=== PATIENT | female | born 1950 | race Caucasian/White ===

== ENCOUNTER 2018-05-29 08:38 | Inpatient (IN) | payer MEDICARE, BC ==
[~2018-05-29] VITALS: Ht 149.9 cm; Wt 79.4 kg
[2018-05-29 09:22] LABS: BASOPHILS ABSOLUTE AUTO 0.02 K/mm3 (0.00-0.23); BASOPHILS PERCENT AUTO 0 % (0-2); EOSINOPHILS ABSOLUTE AUTO 0.06 K/mm3 (0.00-0.68); EOSINOPHILS PERCENT AUTO 1 % (0-6); Hematocrit 42.4 % (33.0-51.0); Hemoglobin 13.8 g/dL (11.5-16.0); IMMATURE GRAN ABSOLUTE AUTO 0.02 K/mm3 (0.00-0.10); IMMATURE GRAN PERCENT AUTO 0 % (0-1); LYMPHOCYTES ABSOLUTE AUTO 3.47 K/mm3 (0.84-5.20); LYMPHOCYTES PERCENT AUTO 43 % (21-46); MONOCYTES ABSOLUTE AUTO 0.45 K/mm3 (0.16-1.47); MONOCYTES PERCENT AUTO 6 % (4-13); Mean Corpuscular HGB 30.6 pg (26.0-34.0); Mean Corpuscular HGB Conc 32.5 g/dL (31.5-36.5); Mean Corpuscular Volume 94 fL (80-100); Mean Platelet Volume 11.4 fL (9.1-12.4); NEUTROPHILS ABSOLUTE AUTO 4.11 K/mm3 (1.96-9.15); NEUTROPHILS PERCENT AUTO 51 % (41-73); Platelet Count 275 K/mm3 (150-400); RDW Coefficient Variation 13.7 % (11.7-14.2); Red Blood Cell Count 4.51 M/mm3 (3.80-5.20); White Blood Cell Count 8.13 K/mm3 (4.00-11.30)
[2018-05-29] MEDS ORDERED: Omeprazole20 M1 PO (09:36)
[2018-05-29] MEDS ORDERED: LOSA50 PO (09:36)
[2018-05-29] MEDS ORDERED: UNISOM25 MG PO (09:37)
[2018-05-29] MEDS ORDERED: ROSUVASTATIN CA20 MG PO (09:37)
[2018-05-29] MEDS ORDERED: CELE200 PO (09:37)
[2018-05-29] MEDS ORDERED: ACET325 PO (09:38)
[2018-05-29 09:39] LABS: Alanine Aminotransfer (ALT/SGP 33 U/L (12-78); Albumin, Blood 3.9 g/dL (3.4-5.0); Alk Phos 76 U/L (50-136); Anion Gap 11 mmol/L (6-16); Aspartate Aminotrans (AST/SGOT 30 U/L (12-37); Bilirubin, Total 0.4 mg/dL (0.1-1.0); Blood Urea Nitrogen 14 mg/dL (8-24); Bun/Creatinine Ratio 17.2 (12.0-20.0); CO2, Blood 27 mmol/L (21-32); Calcium, Blood 9.4 mg/dL (8.5-10.1); Chloride, Blood 107 mmol/L (98-108); Creatinine, Blood 0.81 mg/dL (0.40-1.00); Glomerular Filtration Rate >60 (60-); Glucose, Blood 139 mg/dL (70-99); Sodium, Blood 145 mmol/L (136-145); Total Protein, Blood 7.9 g/dL (6.4-8.2); Troponin I 0.051 ng/mL (0.000-0.040)
[2018-05-30 04:11] LABS: BASOPHILS ABSOLUTE AUTO 0.02 K/mm3 (0.00-0.23); BASOPHILS PERCENT AUTO 0 % (0-2); EOSINOPHILS ABSOLUTE AUTO 0.06 K/mm3 (0.00-0.68); EOSINOPHILS PERCENT AUTO 1 % (0-6); Hematocrit 33.2 % (33.0-51.0); Hemoglobin 10.7 g/dL (11.5-16.0); IMMATURE GRAN ABSOLUTE AUTO 0.02 K/mm3 (0.00-0.10); IMMATURE GRAN PERCENT AUTO 0 % (0-1); LYMPHOCYTES ABSOLUTE AUTO 2.31 K/mm3 (0.84-5.20); LYMPHOCYTES PERCENT AUTO 38 % (21-46); MONOCYTES ABSOLUTE AUTO 0.53 K/mm3 (0.16-1.47); MONOCYTES PERCENT AUTO 9 % (4-13); Mean Corpuscular HGB 30.7 pg (26.0-34.0); Mean Corpuscular HGB Conc 32.2 g/dL (31.5-36.5); Mean Corpuscular Volume 95 fL (80-100); Mean Platelet Volume 11.1 fL (9.1-12.4); NEUTROPHILS ABSOLUTE AUTO 3.16 K/mm3 (1.96-9.15); NEUTROPHILS PERCENT AUTO 52 % (41-73); Platelet Count 210 K/mm3 (150-400); RDW Standard Deviation 48.6 fL (35.1-46.3); Red Blood Cell Count 3.49 M/mm3 (3.80-5.20)
[2018-05-30 04:28] LABS: Anion Gap 7 mmol/L (6-16); Blood Urea Nitrogen 14 mg/dL (8-24); Bun/Creatinine Ratio 19.1 (12.0-20.0); CO2, Blood 29 mmol/L (21-32); Chloride, Blood 109 mmol/L (98-108); Creatinine, Blood 0.73 mg/dL (0.40-1.00); Glomerular Filtration Rate >60 (60-); Glucose, Blood 107 mg/dL (70-99); Potassium, Blood 4.1 mmol/L (3.5-5.5); Sodium, Blood 145 mmol/L (136-145)
[2018-05-31 05:10] LABS: BASOPHILS ABSOLUTE AUTO 0.02 K/mm3 (0.00-0.23); BASOPHILS PERCENT AUTO 0 % (0-2); EOSINOPHILS ABSOLUTE AUTO 0.09 K/mm3 (0.00-0.68); EOSINOPHILS PERCENT AUTO 2 % (0-6); Hematocrit 33.8 % (33.0-51.0); Hemoglobin 10.7 g/dL (11.5-16.0); IMMATURE GRAN ABSOLUTE AUTO 0.01 K/mm3 (0.00-0.10); IMMATURE GRAN PERCENT AUTO 0 % (0-1); LYMPHOCYTES ABSOLUTE AUTO 2.21 K/mm3 (0.84-5.20); LYMPHOCYTES PERCENT AUTO 37 % (21-46); MONOCYTES ABSOLUTE AUTO 0.43 K/mm3 (0.16-1.47); MONOCYTES PERCENT AUTO 7 % (4-13); Mean Corpuscular HGB 30.1 pg (26.0-34.0); Mean Corpuscular HGB Conc 31.7 g/dL (31.5-36.5); Mean Corpuscular Volume 95 fL (80-100); Mean Platelet Volume 11.5 fL (9.1-12.4); NEUTROPHILS ABSOLUTE AUTO 3.15 K/mm3 (1.96-9.15); NEUTROPHILS PERCENT AUTO 53 % (41-73); Platelet Count 216 K/mm3 (150-400); RDW Coefficient Variation 13.5 % (11.7-14.2); RDW Standard Deviation 47.2 fL (35.1-46.3); Red Blood Cell Count 3.55 M/mm3 (3.80-5.20); White Blood Cell Count 5.91 K/mm3 (4.00-11.30)
[2018-06-01 05:12] LABS: Hematocrit 31.7 % (33.0-51.0); Hemoglobin 10.6 g/dL (11.5-16.0)
[2018-06-01 05:32] LABS: Anion Gap 8 mmol/L (6-16); Blood Urea Nitrogen 11 mg/dL (8-24); Bun/Creatinine Ratio 18.7 (12.0-20.0); CO2, Blood 30 mmol/L (21-32); Calcium, Blood 8.8 mg/dL (8.5-10.1); Chloride, Blood 104 mmol/L (98-108); Creatinine, Blood 0.59 mg/dL (0.40-1.00); Glomerular Filtration Rate >60 (60-); Glucose, Blood 127 mg/dL (70-99); Sodium, Blood 142 mmol/L (136-145)
[2018-06-02] MEDS ORDERED: HYDR1TAB94 PO (11:10)
== END 2018-06-02 16:45 | disposition home or self-care (01) | DRG 494 ==
LOC: ER 08:38 → SURS 11:06
PROVIDERS: Emergency Medicine; Internal Medicine; Orthopaedic Surgery
PROC: 0QSK04Z Reposition Left Fibula with Internal Fixation Device, Open Approach (ICD-10-PCS; 2018-05-31)
PROC: 0QSH04Z Reposition Left Tibia with Internal Fixation Device, Open Approach (ICD-10-PCS; principal; 2018-05-31 10:30)
DX: S82.302A Unspecified fracture of lower end of left tibia, initial encounter for closed fracture (principal); R55 Syncope and collapse; E78.00 Pure hypercholesterolemia, unspecified; I10 Essential (primary) hypertension; K21.9 Gastro-esophageal reflux disease without esophagitis; M19.90 Unspecified osteoarthritis, unspecified site; S82.402A Unspecified fracture of shaft of left fibula, initial encounter for closed fracture; W19.XXXA Unspecified fall, initial encounter; Y93.9 Activity, unspecified; Y92.002 Bathroom of unspecified non-institutional (private) residence as the place of occurrence of the external cause; R42 Dizziness and giddiness
CPT/HCPCS: 27752; 36415; 71045; 73610; 80048; 80053; 83735; 84484; 85014; 85018; 85025; 93005; 93010; 93306; 96361; 96374; 96375; 96376; 97116; 97162; 97166; 97530; 97535; 99285-25; C1713; C9113; G8978; G8979; G8987; G8988; J0690; J1100; J1650; J1885; J2250; J2405; J3010; J7030; J7042; J7120

== ENCOUNTER 2019-06-30 23:21 | Inpatient (IN) | payer MEDICARE, BC ==
[~2019-06-30] VITALS: Ht 152.4 cm; Wt 81.5 kg
[~2019-06-30 23:21] MED LIST: ACET325 PO; CELE200 PO; HYDR1TAB94 PO; LOSA50 PO; Omeprazole20 M1 PO; ROSUVASTATIN CA20 MG PO; UNISOM25 MG PO
[2019-06-30] MEDS ORDERED: CELECOXIB200 MG PO (23:32)
[2019-06-30] MEDS ORDERED: OMEPRAZOLE CAP 20M (23:32)
[2019-06-30] MEDS ORDERED: ALENDRONATE TAB 70M (23:32)
[2019-06-30] MEDS ORDERED: INFLUENZA VACCINE (23:32)
[2019-06-30] MEDS ORDERED: PROPRANOLOL (23:32)
[2019-06-30] MEDS ORDERED: CEPHALEXIN (23:32)
[2019-06-30] MEDS ORDERED: LOSARTAN POTASS50 MG PO (23:32)
[2019-06-30] MEDS ORDERED: ITRA100 PO (23:32)
[2019-07-01 00:34] LABS: Hematocrit 44.5 % (33.0-51.0); Mean Corpuscular HGB 29.5 pg (26.0-34.0); Mean Corpuscular HGB Conc 31.5 g/dL (31.5-36.5); RDW Coefficient Variation 13.2 % (11.7-14.2); Red Blood Cell Count 4.74 M/mm3 (3.80-5.20)
[2019-07-01 00:36] LABS: Mean Corpuscular Volume 94 fL (80-100); Mean Platelet Volume 11.6 fL (9.1-12.4); Platelet Count 170 K/mm3 (150-400)
[2019-07-01 00:53] LABS: Alanine Aminotransfer (ALT/SGP 33 U/L (12-78); Albumin, Blood 3.9 g/dL (3.4-5.0); Alk Phos 92 U/L (50-136); Anion Gap 9 mmol/L (6-16); Aspartate Aminotrans (AST/SGOT 42 U/L (12-37); Bilirubin, Total 0.7 mg/dL (0.1-1.0); Blood Urea Nitrogen 24 mg/dL (8-24); Bun/Creatinine Ratio 32.1 (12.0-20.0); CO2, Blood 23 mmol/L (21-32); Calcium, Blood 8.6 mg/dL (8.5-10.1); Chloride, Blood 107 mmol/L (98-108); Creatinine, Blood 0.75 mg/dL (0.40-1.00); Globulin, Blood 4.1 g/dL (2.2-4.0); Glomerular Filtration Rate >60 (60-); Glucose, Blood 129 mg/dL (70-99); Potassium, Blood 4.6 mmol/L (3.5-5.5); Sodium, Blood 139 mmol/L (136-145)
[2019-07-01 00:57] LABS: BAND PERCENT MAN 11 % (0-8); BASOPHILS PERCENT MAN 0 % (0-2); EOSINOPHILS PERCENT MAN 0 % (0-6); LYMPHOCYTES ABSOLUTE MAN 1.28 K/mm3 (0.84-5.20); LYMPHOCYTES PERCENT MAN 12 % (21-46); MONOCYTES ABSOLUTE MAN 0.53 K/mm3 (0.16-1.47); MONOCYTES PERCENT MAN 5 % (4-13); NEUTROPHILS ABSOLUTE MAN 8.88 K/mm3 (1.96-9.15); SEG NEUTROPHILS PERCENT MAN 72 % (41-73); TOTAL CELLS COUNTED 100
[2019-07-01 03:28] LABS: Source, Urine Clean Catch
[2019-07-01 03:31] LABS: Bilirubin, Urine Neg (Neg); Blood, Urine 4+ (Neg); Glucose Qualitative, Urine Neg (Neg); Ketones, Urine 3+ (Neg); Leukocyte Esterase, Urine 1+ (Neg); Nitrite, Urine Neg (Neg); Protein, Urine 2+ (Neg); Urobilinogen, Urine NORM (Normal)
[2019-07-01 03:41] LABS: Appearance, Urine Hazy (Clear); Color, Urine Yellow (P-Yellow)
[2019-07-01 03:42] LABS: Amorphous Light (0-Heavy); Bacteria Few /hpf; Mucus Light (0-Heavy); Squamous Epithelial Cells Mod /hpf (Few); White Blood Cells, Urine Rare /hpf (0-5)
--- NOTE | 2019-07-01 08:20 | NUR ---
Assumed Care of Patient Received report from ARABELLA Valencia. Pt arrived via w/c A/Ox3. SBA transfer from w/c to bed. Pt oriented to call light system. .
[2019-07-01] MEDS ORDERED: ALEN70 PO (08:50)
[2019-07-01] MEDS ORDERED: OMEPRAZOLE20 MG PO (09:03)
[2019-07-01] MEDS ORDERED: CELE100 PO (09:05)
[2019-07-01] MEDS ORDERED: PROP80ER (09:07)
--- NOTE | 2019-07-01 09:59 | NUR ---
Physician notified Dr. Ortiz notified of high blood pressure and pt c/o of abdominal pain 06/24. Orders received for pain management. Dr. Ortiz will be in to see patient shortly.
--- NOTE | 2019-07-01 12:44 | NUR ---
Physician notified Dr. Ortiz notified of critical lab value for lactic acid of 2.7 by this RN. No new orders received.
--- NOTE | 2019-07-01 15:59 | NUR ---
Physician notified Dr. Ortiz notified RE critical lab Lactic Acid of 2.1. No new orders, awaiting CT c contrast.
--- NOTE | 2019-07-01 18:05 | NUR ---
Shift Summary A/Ox4. Pt SBA in room, continent of urine via BSC. Calls appropriately. C/O intermittent abdominal pain, medicated x 2. Also c/o nausea, medicated x 2. Pt has had 2 critical labs with lactic acid (see labs), Dr. Ortiz aware. Pt has LR running at 125mls/hr. NPO at this time. CT c contrast has been completed. RA @ 95%. No other acute changes this shift.
--- NOTE | 2019-07-01 18:57 | NUR ---
Physician notified Dr. Ortiz notified of pt c/o flushed feeling after CT c contrast. Also notified of BP 179/104 and HR 131. Orders received to bolus 1L LR and 25mg Benadryl IV now.
--- NOTE | 2019-07-01 20:33 | NUR ---
PTS HEART RATE CONTINUES AT 142, LR BOLUS COMPLETED, PT ASYMPOMATIC, N, PIPE, CHERRY CUTTER NOTIFIED WITH ORDERS [id number] 5MG IVP NOW AND REPEAT IN 15 MINUTES IF HEART RATE > 120, TELEMETRY AND EKG AFTER HEART RATE LESS THAN 120. SHELDON MARI RN, CHARGE NURSE ADVISED.
[2019-07-02 00:47] LABS: Hematocrit 39.7 % (33.0-51.0); Hemoglobin 12.5 g/dL (11.5-16.0); Mean Corpuscular HGB 29.8 pg (26.0-34.0); Mean Corpuscular HGB Conc 31.5 g/dL (31.5-36.5); Mean Corpuscular Volume 95 fL (80-100); Mean Platelet Volume 11.4 fL (9.1-12.4); Platelet Count 203 K/mm3 (150-400); RDW Coefficient Variation 13.3 % (11.7-14.2); RDW Standard Deviation 46.9 fL (35.1-46.3); Red Blood Cell Count 4.19 M/mm3 (3.80-5.20); White Blood Cell Count 6.97 K/mm3 (4.00-11.30)
[2019-07-02 01:03] LABS: Anion Gap 6 mmol/L (6-16); Blood Urea Nitrogen 14 mg/dL (8-24); CO2, Blood 26 mmol/L (21-32); Chloride, Blood 106 mmol/L (98-108); Creatinine, Blood 0.67 mg/dL (0.40-1.00); Glomerular Filtration Rate >60 (60-); Glucose, Blood 114 mg/dL (70-99); Potassium, Blood 3.9 mmol/L (3.5-5.5); Sodium, Blood 138 mmol/L (136-145)
[2019-07-02 01:07] LABS: BAND PERCENT MAN 24 % (0-8); BASOPHILS PERCENT MAN 0 % (0-2); EOSINOPHILS PERCENT MAN 0 % (0-6); LYMPHOCYTES ABSOLUTE MAN 2.23 K/mm3 (0.84-5.20); LYMPHOCYTES PERCENT MAN 32 % (21-46); METAMYELOCYTE ABSOLUTE MAN 0.06 K/mm3 (0.00-0.00); METAMYELOCYTE PERCENT MAN 1 % (0-0); MONOCYTES ABSOLUTE MAN 0.62 K/mm3 (0.16-1.47); MONOCYTES PERCENT MAN 9 % (4-13); NEUTROPHILS ABSOLUTE MAN 4.04 K/mm3 (1.96-9.15); SEG NEUTROPHILS PERCENT MAN 34 % (41-73); TOTAL CELLS COUNTED 100
[2019-07-02 01:13] LABS: Alanine Aminotransfer (ALT/SGP 19 U/L (12-78); Albumin, Blood 2.8 g/dL (3.4-5.0); Albumin/Globulin Ratio 0.7 (0.8-1.8); Alk Phos 63 U/L (50-136); Anion Gap 8 mmol/L (6-16); Aspartate Aminotrans (AST/SGOT 23 U/L (12-37); Bilirubin, Total 0.9 mg/dL (0.1-1.0); Blood Urea Nitrogen 14 mg/dL (8-24); Bun/Creatinine Ratio 19.3 (12.0-20.0); CO2, Blood 24 mmol/L (21-32); Calcium, Blood 7.8 mg/dL (8.5-10.1); Chloride, Blood 105 mmol/L (98-108); Creatinine, Blood 0.72 mg/dL (0.40-1.00); Glomerular Filtration Rate >60 (60-); Glucose, Blood 113 mg/dL (70-99); Magnesium, Blood 1.4 mg/dL (1.6-2.4); Sodium, Blood 137 mmol/L (136-145); Total Protein, Blood 6.8 g/dL (6.4-8.2)
[2019-07-02 01:15] LABS: Thyroid Stimulating Hormone 0.483 uIU/mL (0.360-4.800)
--- NOTE | 2019-07-02 02:10 | NUR ---
ASSUMED CARE OF PATIENT AT APPROXIMATELY 2345 FROM FRANCIS Suarez, MEDICAL FLOOR RN. PATIENT TRANSFER FROM MEDICAL FROM FROM [facility]. PATIENT ARRIVED TO UNIT VIA STRETCHER; TRANSFER VIA SBA FROM MEDICAL TO U STRETCHER. PATIENT INDEPENDENT TO BEDSIDE COMMODE TO URINATE. PATIENT REPORTS PAIN IN RLQ SINCE CT SCAN OF ABDOMEN YESTERDAY EVENING; MEDICATED PER EMAR. ADVISORY SERVICES ASSOCIATE BELLE IGLBERT WITH PATIENT SHORTLY AFTER ARRIVAL; IV CARDIZEM PUSH GIVEN AND HEART RATE DECREASED TO 90'S; CURRENTLY 100-120'S; TOUCHING 130 AT TIMES BUT NO SUSTAINING. LR BOLUS GIVEN AND LR INFUSING PER ORDER. PATIENT DENIES NUMBNESS, TINGLING AND DIZZINESS. MILD NAUSEA; MEDICATER PER EMAR. PATIENT CURRENLTY RESTING IN BED; CALL LIGHT IN REACH; BED IN LOWEST POSISTION; WILL CONTINUE TO MONITOR AND ASSESS UNTIL END OF SHIFT.
--- NOTE | 2019-07-02 03:14 | NUR ---
CALLED DR. CARRANZA TO REPORT PATIENT'S HEART RATE TRENDING UP TO 130'S AND MAG OF 1.4; ORDERS RECIEVED.
[2019-07-02] MEDS ORDERED: MAGNESIUM OTC PO (03:54)
--- NOTE | 2019-07-02 06:32 | NUR ---
PATIENT SLEPT ABOUT TWO HOURS LAST NIGHT. HEART RATE ABOUT 140 WHEN CARDIZEM GTT WAS STARTED PER ORDER. HEART RATE TRENDING DOWN; CURRENTLY TRENDING ABOUT 120'S. URINATING ABOUT EVERY HOUR. C/O HEADACHE; REPORTS QUINONES RELIEVED WITH COOL WASH CLOTH TO FOREHEAD. WILL CONTINUE TO MONITOR AND ASSESS UNTIL END OF SHIFT.
--- NOTE | 2019-07-02 08:00 | NUR ---
PT LAYING IN BED AWAKE A/OX3, PLEASANT AND COOPERATIVE WITH CARE, FOLLOWS COMMANDS WELL, REPORTS A H/A, AND REQUESTING TYLENOL, ALSO GAVE HER COOL WASHCLOTH, LUNGS ARE CLEAR, A BIT DIM IN BASES, RESP EVEN AND UNLABORED, NO COUGH NOTED, HRIRR, TELE IN PLACE RUNNING AFIB PER MONITOR AT 130'S, NO EDEMA NOTED, PPP+2 ON LEFT LE, FOUND VIA DOPPLER ON RIGHT LE, IV SITES ARE CLEAR AND PATENT, BTX4, ABD FLAT SOFT NONTENDER, VOIDS WITHOUT DIFF, SKIN C/W/D, MAEW, DISHA, CALL LIGHT IN REACH.
--- NOTE | 2019-07-02 10:30 | NUR ---
stopped cardizem gtt as she is averaging in the 70's, and stopped lr per Dr. Ortiz. pt visiting, h/a is better, no complaints. call light in reach.
--- NOTE | 2019-07-02 17:30 | NUR ---
rate back up to 140's, called Dr. Ortiz he ordered a 10mg push of diltiazem, and increased the metoprolol to 100 bid, push was given. pt continues to have abd cramps, she feels is gas, gasx given as well as maalox, she reports its less, and not lasting as long, call light in reach.
--- NOTE | 2019-07-02 18:40 | NUR ---
pt converted at 1800, call to Dr. Ortiz he changed to metoprolol back to 50mg bid, pt states she feels some better, no further changes this shift. call light in reach.
--- NOTE | 2019-07-02 21:17 | NUR ---
ASSUMED CARE APPROXIMATELY 1900; PT ALERT IN BED AND ON HER PHONE; PT STATES GAS AND ABDOMINAL CRAMPING HAS IMPROVED; STATES SHE IS VERY TIRED AND WANTS TO SLEEP; PT CONVERTED BACK TO SR AT SHIFT CHANGE; HR IN 60'S;DENIES CHEST PAIN; DENIES COUGH; DENIES PAIN; LR RESTARTED; PT UP TO BSC TOLERATED WELL; CALL LIGHT IN REACH; BED IN LOWEST POSITION; WILL CONTINUE TO MONITOR
[2019-07-03 03:59] LABS: Anion Gap 5 mmol/L (6-16); Blood Urea Nitrogen 12 mg/dL (8-24); CO2, Blood 29 mmol/L (21-32); Calcium, Blood 8.2 mg/dL (8.5-10.1); Chloride, Blood 102 mmol/L (98-108); Creatinine, Blood 0.75 mg/dL (0.40-1.00); Glomerular Filtration Rate >60 (60-); Glucose, Blood 104 mg/dL (70-99); Potassium, Blood 3.9 mmol/L (3.5-5.5); Sodium, Blood 136 mmol/L (136-145)
[2019-07-03 08:59] LABS: Hematocrit 35.8 % (33.0-51.0); Hemoglobin 11.3 g/dL (11.5-16.0); Mean Corpuscular HGB 29.9 pg (26.0-34.0); Mean Corpuscular HGB Conc 31.6 g/dL (31.5-36.5); Mean Corpuscular Volume 95 fL (80-100); Mean Platelet Volume 12.4 fL (9.1-12.4); Platelet Count 205 K/mm3 (150-400); RDW Coefficient Variation 13.5 % (11.7-14.2); Red Blood Cell Count 3.78 M/mm3 (3.80-5.20); White Blood Cell Count 8.58 K/mm3 (4.00-11.30)
[2019-07-03 09:19] LABS: BAND PERCENT MAN 12 % (0-8); BASOPHILS PERCENT MAN 0 % (0-2); EOSINOPHILS ABSOLUTE MAN 0.08 K/mm3 (0.00-0.68); EOSINOPHILS PERCENT MAN 1 % (0-6); LYMPHOCYTES ABSOLUTE MAN 1.45 K/mm3 (0.84-5.20); LYMPHOCYTES PERCENT MAN 17 % (21-46); MONOCYTES ABSOLUTE MAN 1.02 K/mm3 (0.16-1.47); MONOCYTES PERCENT MAN 12 % (4-13); SEG NEUTROPHILS PERCENT MAN 58 % (41-73); TOTAL CELLS COUNTED 100
--- NOTE | 2019-07-03 09:31 | NUR ---
BEGINNING OF SHIFT Assumed care at 0700. Bedside report received from Janell BELL. Pt on room air. SR per chinedu. Independent in room to bedside commode. Dr Ortiz in to see pt. States plan to discharge pt today. Provider would like to eat regular meal tray prior to discharge. Pt updated. Verbalizes understanding of plan of care. Bed in lowest position. Call light in reach. Pt denies need at this time.
[2019-07-03] MEDS ORDERED: MAGNESIUM250 MG PO (12:16)
[2019-07-03] MEDS ORDERED: TUMS500 MG PO (12:17)
[2019-07-03] MEDS ORDERED: Magnesium-Alum360 ML PO (12:20)
[2019-07-03] MEDS ORDERED: METO50 PO (12:21)
[2019-07-03] MEDS ORDERED: SIME80CH PO (12:22)
[2019-07-03] MEDS ORDERED: LEVFLO500 PO (12:24)
[2019-07-03] MEDS ORDERED: Florastor250 MG PO (12:24)
[2019-07-03] MEDS ORDERED: ELIQUIS5 MG PO (12:24)
[2019-07-03] MEDS ORDERED: METR500 PO (12:25)
--- NOTE | 2019-07-03 13:32 | NUR ---
DISCHARGE Pt discharged from unit at 1315, accompanied by FRANCISCO Kennedy. Discharge instructions provided by this RN. Medications notified to [facility] pharmacy in [place]. IV access discontinued. Telemetry removed.
== END 2019-07-03 13:16 | disposition home or self-care (01) | DRG 872 ==
LOC: ER 23:21 → MEDS 23:22 → PCU 07-01 23:43
PROVIDERS: Emergency Medicine; Internal Medicine; Nurse Practitioner Acute Care; ADMIT Hospitalist
DX: A41.9 Sepsis, unspecified organism (principal); E87.2 Acidosis; K52.9 Noninfective gastroenteritis and colitis, unspecified; I10 Essential (primary) hypertension; E78.00 Pure hypercholesterolemia, unspecified; E78.5 Hyperlipidemia, unspecified; K21.9 Gastro-esophageal reflux disease without esophagitis; M19.90 Unspecified osteoarthritis, unspecified site; R79.89 Other specified abnormal findings of blood chemistry; I48.91 Unspecified atrial fibrillation; E86.0 Dehydration
CPT/HCPCS: 36415; 74176; 74177; 80048; 80053; 81001; 83605; 83690; 83735; 84443; 84484; 85025; 93005; 93010; 93306; 96361; 96365; 96366; 96372; 96374; 96375; 96376; 99285-25; A9270; C9113; G0378; J1170; J1200; J1630; J1650; J2405; J2765; J3010; J3475; J7030; J7120; Q9967

== ENCOUNTER → 2019-09-01 | Outpatient (CLI) | payer MEDICARE, BC ==
[~2019-09-01] MED LIST changes: +ALEN70 PO; +ALENDRONATE TAB 70M; +CELE100 PO; +CELECOXIB200 MG PO; +CEPHALEXIN; +ELIQUIS5 MG PO; +Florastor250 MG PO; +INFLUENZA VACCINE; +ITRA100 PO; +LEVFLO500 PO; +LOSARTAN POTASS50 MG PO; +MAGNESIUM OTC PO; +MAGNESIUM250 MG PO; +METO50 PO; +METR500 PO; +Magnesium-Alum360 ML PO; +OMEPRAZOLE CAP 20M; +OMEPRAZOLE20 MG PO; +PROP80ER; +PROPRANOLOL; +SIME80CH PO; +TUMS500 MG PO
== END | disposition home or self-care (01) ==
LOC: LAB SHORT 11:30 → LAB 11:30
DX: A04.72 Enterocolitis due to Clostridium difficile, not specified as recurrent (principal)
CPT/HCPCS: 87493

== ENCOUNTER → 2020-07-04 | Outpatient (CLI) | payer MEDICARE, BC ==
[~2020-07-04] MED LIST changes: +ASPI81CH PO; +CILO100 PO; +Crestor20 MG PO; +PANT40 PO; +PROP80ER PO
[2020-07-05 16:07] LABS: ADENOVIRUS F 40/41 Not Detected (Not Detected); ASTROVIRUS Not Detected (Not Detected); C DIFFICILE TOXIN A/B Not Detected (Not Detected); CAMPYLOBACTER Not Detected (Not Detected); CRYPTOSPORIDIUM Not Detected (Not Detected); CYCLOSPORA CAYETANENSIS Not Detected (Not Detected); ENTAMOEBA HISTOLYTICA Not Detected (Not Detected); ENTEROAGGREGATIVE E COLI Not Detected (Not Detected); ENTEROPATHOGENIC E COLI Not Detected (Not Detected); ENTEROTOXIGENIC E COLI Not Detected (Not Detected); GIARDIA LAMBLIA Not Detected (Not Detected); NOROVIRUS GI/GII Not Detected (Not Detected); PLESIOMONAS SHIGELLOIDES Not Detected (Not Detected); ROTAVIRUS A Not Detected (Not Detected); SALMONELLA Not Detected (Not Detected); SAPOVIRUS Not Detected (Not Detected); SHIGA-TOXIN-PRODUCING E COLI Not Detected (Not Detected); SHIGELLA/ENTEROINVASIVE E COLI Not Detected (Not Detected); VIBRIO Not Detected (Not Detected); VIBRIO CHOLERAE Not Detected (Not Detected); YERSINIA ENTEROCOLITICA Not Detected (Not Detected)
== END ==
LOC: LAB SHORT 19:21 → LAB 19:21
PROVIDERS: Internal Medicine Gastroenterology
DX: R19.7 Diarrhea, unspecified (principal)
CPT/HCPCS: 0097U

== ENCOUNTER 2020-07-19 07:23 | Day surgery (SDC) | payer MEDICARE, BC ==
[~2020-07-19] VITALS: Ht 149.9 cm; Wt 87.1 kg
--- NOTE | 2020-07-19 08:31 | NUR ---
Ambulatory in Day Surgery History, Chart, Medications and Allergies reviewed before start of procedure. Lungs clear T/O to Auscultation. Patient confirms NPO status and agrees with scheduled surgery. Patient States Post-Procedure ride home has been arranged.
--- NOTE | 2020-07-19 08:36 | NUR ---
07/19/[address] [place] History, Chart, Medications and Allergies reviewed before start of procedure.Patient confirms NPO status and agrees with scheduled surgery.3-LEAD EKG REVIEWED WITH PHYSICIAN PRIOR TO START OF PROCEDURE.MONITOR INTACT WITH CONTINUOUS PULSE OXIMETRY AND INTERMITTENT BP.O2 VIA N/C INTACT THROUGHOUT SEDATION/PROCEDURE. PATIENT DETERMINED TO BE ASA APPROPRIATE FOR PROPOFOL SEDATION PRIOR TO START OF PROCEDURE BY DR. WATTERS
--- NOTE | 2020-07-19 09:45 | NUR ---
DISCHARGE SUMMARY Patient up to Ambulate independently. Gait steady. Discharge instructions reviewed with patient. Patient verbalizes understanding. Copy given to patient to take home. Discharged via wheelchair to private car for ride home. PT A&OX4, VSS, LEFT WITH ALL PERSONAL POSSESSIONS, WENT HOME WITH DAUGHTER LUKASZ. IV DC'D.
== END 2020-07-19 23:28 | disposition home or self-care (01) ==
LOC: ORSCMMR 07:23 → ORD 08:30 → ORSCMMR 08:30
PROVIDERS: Internal Medicine Gastroenterology
PROC: 0DBE8ZX Excision of Large Intestine, Via Natural or Artificial Opening Endoscopic, Diagnostic (ICD-10-PCS; principal; 2020-07-19 08:30)
DX: R19.7 Diarrhea, unspecified (principal); Z86.010 Personal history of colon polyps; K21.9 Gastro-esophageal reflux disease without esophagitis; Z79.899 Other long term (current) drug therapy
CPT/HCPCS: 88305; J2704; J7120

== ENCOUNTER 2022-08-27 13:37 | Emergency (ER) | payer MEDICARE, BC ==
[~2022-08-27] VITALS: Ht 152.4 cm; Wt 81.7 kg
[2022-08-27 14:40] LABS: BASOPHILS ABSOLUTE AUTO 0.01 K/mm3 (0.00-0.23); BASOPHILS PERCENT AUTO 0 % (0-2); EOSINOPHILS ABSOLUTE AUTO 0.04 K/mm3 (0.00-0.68); EOSINOPHILS PERCENT AUTO 1 % (0-6); Hematocrit 38.6 % (33.0-51.0); Hemoglobin 12.8 g/dL (11.5-16.0); IMMATURE GRAN ABSOLUTE AUTO 0.03 K/mm3 (0.00-0.10); IMMATURE GRAN PERCENT AUTO 0 % (0-1); LYMPHOCYTES ABSOLUTE AUTO 1.73 K/mm3 (0.84-5.20); LYMPHOCYTES PERCENT AUTO 21 % (21-46); MONOCYTES ABSOLUTE AUTO 0.56 K/mm3 (0.16-1.47); MONOCYTES PERCENT AUTO 7 % (4-13); Mean Corpuscular HGB 31.5 pg (26.0-34.0); Mean Corpuscular HGB Conc 33.2 g/dL (31.5-36.5); Mean Corpuscular Volume 95 fL (80-100); Mean Platelet Volume 11.3 fL (9.1-12.4); NEUTROPHILS PERCENT AUTO 71 % (41-73); Platelet Count 276 K/mm3 (150-400); RDW Coefficient Variation 12.9 % (11.7-14.2); RDW Standard Deviation 44.8 fL (35.1-46.3); Red Blood Cell Count 4.06 M/mm3 (3.80-5.20); White Blood Cell Count 8.07 K/mm3 (4.00-11.30)
[2022-08-27 14:53] LABS: International Normalized Ratio 0.99; Prothrombin Time Results 10.4 Sec (9.7-11.5)
[2022-08-27 15:09] LABS: Albumin, Blood 4.1 g/dL (3.4-5.0); Albumin/Globulin Ratio 1.1 (0.8-1.8); Bilirubin, Total 0.6 mg/dL (0.1-1.0); Bun/Creatinine Ratio 18.6 (12.0-20.0); Calcium, Blood 9.5 mg/dL (8.5-10.1); Creatinine, Blood 0.75 mg/dL (0.40-1.00); Globulin, Blood 3.7 g/dL (2.2-4.0); Total Protein, Blood 7.8 g/dL (6.4-8.2)
== END 2022-08-27 19:16 | disposition home or self-care (01) ==
LOC: ER 13:37
PROVIDERS: Emergency Medicine
DX: G45.9 Transient cerebral ischemic attack, unspecified (principal); I10 Essential (primary) hypertension
CPT/HCPCS: 36415; 70450; 80053; 82947; 85025; 85610